=== PATIENT | female | born 1970 | race Caucasian/White ===

== ENCOUNTER 2021-05-30 18:23 | Emergency (ER) | payer MEDICARE, OTHER ==
[2021-05-30 19:34] LABS: HEMOGLOBIN 12.8 gm/dl (12.3-15.3); RED BLOOD COUNT 4.49 M/UL (4.00-5.10); WHITE BLOOD COUNT 7.3 K/UL (4.5-11.0)
[2021-05-30 20:29] LABS: BUN/CREATININE RATIO 14 (0-10)
[2021-05-30] MEDS ORDERED: OMNICEF 300 MG300 MG PO (22:44)
== END 2021-05-30 22:17 | disposition home or self-care (01) ==
LOC: ER1 18:23
PROVIDERS: Nurse Practitioner
DX: R07.89 Other chest pain (principal); N39.0 Urinary tract infection, site not specified; E78.5 Hyperlipidemia, unspecified; C34.90 Malignant neoplasm of unspecified part of unspecified bronchus or lung; Z20.822 Contact with and (suspected) exposure to COVID-19
CPT/HCPCS: 0240U; 71045; 80053; 81001; 82550; 82553; 83874; 84484; 85025; 93005; 96374; 96375; 99285; J0696; J2270; J2405; J7030; Q9967